=== PATIENT | male | born 1960 | race African-American/Black ===

== ENCOUNTER 2017-06-28 15:42 | Emergency (ER) | payer OTHER ==
[2017-06-28 15:54] VITALS: BP 117/82; PULSE 70; TEMP 98.6; BMI 26.7
--- NOTE | 2017-06-28 16:08 | PDOC ---
History of Present Illness - General History Source: Patient Exam Limitations: No Limitations - History of Present Illness Initial Comments: 06/28/17 16:37 The patient is a 56 year old male with past medical history of double knee replacement and chronic lower back pain secondary to injury in 2011 who presents to the ED with complaints of worsening lower back pain since yesterday. The patients states the patient always has pain, but over the past day it has been significantly worse. He denies any recent injury to the area or any recent falls. He denies any associated numbness or tingling, denies any saddle anesthesia. He denies taking anything for pain. She reports the patient has worked every day for the past three weeks. He works at [employer] in the [place], performing heavy lifting often, and states he wears a back support. He denies any recent illness, fevers, or chills. <Kelley Saunders - Last Filed: 06/28/17 17:03> <Zak Nicole - Last Filed: 06/28/17 17:13> - General Chief Complaint: Back Pain Stated Complaint: BACK PAIN Time Seen by Provider: 06/28/17 15:58 Past History <Kelley Saunders - Last Filed: 06/28/17 17:03> - Past Medical History COPD: No GI Disorders: Yes (colitis) Hypercholesterolemia: Yes Other medical history: BACK PAIN - Surgical History Orthopedic Surgery: Yes (left arthroscopy; toe sx) - Immunization History Immunization Up to Date: Yes - Suicide/Smoking/Psychosocial Hx Smoking Status: No Smoking History: Former smoker Have you smoked in the past 12 months: No Number of Cigarettes Smoked Daily: 0 If you are a former smoker, when did you quit?: 1993 Information on smoking cessation initiated: No Hx Alcohol Use: Yes (OCCASIONAL) Drug/Substance Use Hx: No Substance Use Type: None Hx Substance Use Treatment: No <Zak Nicole - Last Filed: 06/28/17 17:13> - Past Medical History Allergies/Adverse Reactions: Allergies Allergy/AdvReac Type Severity Reaction Status Date / Time shellfish derived Allergy Unknown Verified 06/28/17 15:49 SALMON Allergy Hives Uncoded 06/28/17 15:49 Home Medications: Ambulatory Orders Atorvastatin Ca [Lipitor] 40 mg PO HS 05/05/14 Aspirin [Aspirin EC] 81 mg PO HS 06/28/17 Ketorolac Tromethamine [Toradol] 10 mg PO Q6H #20 tablet 06/28/17 hydrOXYzine PAMOATE [Vistaril -] 25 - 50 mg PO TID #20 capsule 06/28/17 Trauma Specific PMHX - Complaint Specific PMHX Arthritis: No <Zak Nicole - Last Filed: 06/28/17 17:13> Review of Systems - Review of Systems Able to Perform ROS?: Yes Comments:: 06/28/17 16:37 CONSTITUTIONAL: Absent: fever, no chills, no fatigue EYES: Absent: visual changes ENT: Absent: ear pain, no sore throat CARDIOVASCULAR: Absent: chest pain, no palpitations RESPIRATORY: Absent: cough, no SOB GI: Absent: abdominal pain, no nausea, no vomiting, no constipation, no diarrhea GENITOURINARY: Absent: dysuria, no frequency, no hematuria MUSKULOSKELETAL: Present: lower back pain Absent: no arthralgia, no myalgia SKIN: Absent: rash NEURO: Absent: headache All Other Systems: Reviewed and Negative <Kelley Saunders - Last Filed: 06/28/17 17:03> *Physical Exam - Vital Signs Last Vital Signs Temp Pulse Resp BP Pulse Ox 98.6 F 70 16 117/82 98 06/28/17 15:43 06/28/17 15:43 06/28/17 15:43 06/28/17 15:43 06/28/17 15:43 - Physical Exam Comments: 06/28/17 17:03 GENERAL: Well-appearing, well-nourished. No apparent distress. HEENT: Normocephalic, atraumatic. PERRL, EOM intact. CARDIOVASCULAR: Normal S1, S2. Regular rate and rhythm. PULMONARY: Clear to auscultation bilaterally. ABDOMEN: Soft, non-distended, non-tender. EXTREMITIES: Normal ROM in all four extremities. No gross deformities.Distal pulses full and symmetric BACK LS spine has complete loss of lumbar lordosis with severe paravertebral spasm. No point tenderness over vertebral bodies. Negative straight leg raise test. SKIN: Warm, dry. No rash NEUROLOGICAL: No focal neurological deficits. No distal sensory or motor deficits. Ambulation adequate, but uncomfortable <Kelley Saunders - Last Filed: 06/28/17 17:03> - Vital Signs Last Vital Signs Temp Pulse Resp BP Pulse Ox 98.6 F 70 16 117/82 98 06/28/17 15:43 06/28/17 15:43 06/28/17 15:43 06/28/17 15:43 06/28/17 15:43 <Zak Nicole - Last Filed: 06/28/17 17:13> ED Treatment Course - Medications Given in the ED: ED Medications Discontinued Medications Generic Name Dose Route Start Last Admin Trade Name Matt PRN Reason Stop Dose Admin Hydroxyzine Pamoate 50 mg 06/28/17 16:21 06/28/17 16:28 Vistaril - PO 06/28/17 16:22 50 mg ONCE ONE Administration Ketorolac Tromethamine 60 mg 06/28/17 16:20 06/28/17 16:30 Toradol Injection - IM 06/28/17 16:21 60 mg ONCE ONE Administration <Kelley Saunders - Last Filed: 06/28/17 17:03> Medical Decision Making - Medical Decision Making 06/28/17 17:12 Patient is feeling much better. His pain is much improved. Spasm has decreased. He is adequately ambulatory. To continue medication at home and follow-up as directed <Zak Nicole - Last Filed: 06/28/17 17:13> *DC/Admit/Observation/Transfer - Attestations Scribe Attestion: 06/28/17 16:38 Documentation prepared by Kelley Saunders, acting as medical director occupational health for Zak Salinas MD. <Kelley Saunders - Last Filed: 06/28/17 17:03> - Discharge Dispostion Decision to Admit order: No <Zak Nicole - Last Filed: 06/28/17 17:13> Diagnosis at time of Disposition: Low back strain Qualifiers: Encounter type: initial encounter Qualified Code(s): S39.012A - Strain of muscle, fascia and tendon of lower back, initial encounter - Discharge Dispostion Disposition: HOME Condition at time of disposition: Improved - Prescriptions Prescriptions: hydrOXYzine PAMOATE [Vistaril -] 25 - 50 mg PO TID #20 capsule Ketorolac Tromethamine [Toradol] 10 mg PO Q6H #20 tablet - Referrals Referrals: Juan Daniel Tomlin MD [Primary Care Provider] - 24 hours Rick Purdy MD [Staff Physician] - 3 days - Patient Instructions Printed Discharge Instructions: DI for Low Back Pain Additional Instructions: See back specialist for further evaluation and treatment Consider resuming injections and physical therapy. - Post Discharge Activity Forms/Work/School Notes: Back to Work
[2017-06-28] MEDS ORDERED: KETOROLAC TROMETHAMINE 60 MG/2 ML VIAL IM ONE (16:20)
[2017-06-28] MEDS ORDERED: hydrOXYzine PAMOATE 50 MG CAPSULE (FP) PO ONE (16:21)
[2017-06-28] MEDS ORDERED: hydrOXYzine PAMOATE 25 MG CAPSULE (FP) PO ONE (16:26)
[2017-06-28] MEDS ORDERED: KETOROLAC TROMETHAMINE 60 MG/2 ML VIAL ONE (16:26)
== END 2017-06-28 17:17 | disposition home or self-care (01) ==
LOC: FER 15:42 → SUPCPDRO 15:42 → FER 17:17
PROC: 3E0233Z Introduction of Anti-inflammatory into Muscle, Percutaneous Approach (ICD-10-PCS; principal; 2017-06-28)
DX: S39.012A Strain of muscle, fascia and tendon of lower back, initial encounter (principal); Z87.891 Personal history of nicotine dependence; E78.00 Pure hypercholesterolemia, unspecified
CPT/HCPCS: 99282-25

== ENCOUNTER 2017-07-31 21:51 | Emergency (ER) | payer OTHER ==
--- NOTE | 2017-07-31 22:59 | PDOC ---
History of Present Illness - General Chief Complaint: Pain Stated Complaint: LT LEG PAIN History Source: Patient Exam Limitations: Language Barrier - History of Present Illness Initial Comments: 08/01/17 06:53 L LE pain, slightly imporved undergoing physical therapy for LBP Timing/Duration: 1 week Severity: moderate Modifying Factors: improves with: immobilization Associated Symptoms: reports: rash. denies: fever/chills Past History - Past Medical History Allergies/Adverse Reactions: Allergies Allergy/AdvReac Type Severity Reaction Status Date / Time shellfish derived Allergy Unknown Verified 06/28/17 15:49 SALMON Allergy Hives Uncoded 06/28/17 15:49 Home Medications: Ambulatory Orders Atorvastatin Ca [Lipitor] 40 mg PO HS 05/05/14 Aspirin [Aspirin EC] 81 mg PO HS 06/28/17 Ketorolac Tromethamine [Toradol] 10 mg PO Q6H #20 tablet 06/28/17 hydrOXYzine PAMOATE [Vistaril -] 25 - 50 mg PO TID #20 capsule 06/28/17 COPD: No GI Disorders: Yes (colitis) Hypercholesterolemia: Yes - Surgical History Orthopedic Surgery: Yes (left arthroscopy; toe sx) - Immunization History Immunization Up to Date: Yes - Suicide/Smoking/Psychosocial Hx Smoking Status: No Smoking History: Former smoker Have you smoked in the past 12 months: No Number of Cigarettes Smoked Daily: 0 If you are a former smoker, when did you quit?: 1993 Hx Alcohol Use: Yes (OCCASIONAL) Drug/Substance Use Hx: No Substance Use Type: None Hx Substance Use Treatment: No Review of Systems - Review of Systems All Other Systems: Reviewed and Negative *Physical Exam - Physical Exam General Appearance: Yes: Nourished, Appropriately Dressed HEENT: positive: Normal Voice Respiratory/Chest: positive: Lungs Clear Lymphatic: negative: Adenopathy Musculoskeletal: positive: Other (hamstring tenderness L leg) Integumentary: positive: Normal Color. negative: Warm Neurologic: positive: Fully Oriented Medical Decision Making - Medical Decision Making 08/01/17 06:54 hamstring strain nsaids *DC/Admit/Observation/Transfer Diagnosis at time of Disposition: Hamstring muscle strain Qualifiers: Encounter type: initial encounter Laterality: left Qualified Code(s): S76.312A - Strain of muscle, fascia and tendon of the posterior muscle group at thigh level, left thigh, initial encounter - Discharge Dispostion Disposition: HOME Condition at time of disposition: Stable - Referrals Referrals: Juan Daniel Tomlin MD [Primary Care Provider] - Call tomorrow - Patient Instructions Additional Instructions: Ibuprofen 600mg every 6 hours, as needed for pain. Return to ER if the area becomes red or if he develops fever - Post Discharge Activity
[2017-07-31 23:20] VITALS: BP 118/79; PULSE 66; TEMP 99; BMI 26.7
== END 2017-07-31 23:00 | disposition home or self-care (01) ==
LOC: FER 21:51
DX: S76.312A Strain of muscle, fascia and tendon of the posterior muscle group at thigh level, left thigh, initial encounter (principal); X58.XXXA Exposure to other specified factors, initial encounter; Y93.89 Activity, other specified; Y92.9 Unspecified place or not applicable; Z87.891 Personal history of nicotine dependence
CPT/HCPCS: 74240-TC-FY; 99282-25

== ENCOUNTER 2018-04-27 08:00 | Inpatient (IN) | payer OTHER ==
[2018-05-26 16:27] VITALS: BMI 28.7
[2018-06-03] MEDS ORDERED: GENTAMICIN SO4 80 MG/2 ML VIAL ONE (08:06)
[2018-06-03] MEDS ORDERED: BUPIVACAINE LIPOSOME/PF (EXPAREL) 266 MG/20 ML VIAL ONE (08:06)
[2018-06-03] MEDS ORDERED: LIDOCAINE 1%-EPI 1:100,000 30 ML MDV IJ ONE (08:07)
[2018-06-03] MEDS ORDERED: VANCOMYCIN 1,000 MG VIAL (RESTRICTED TO ID ONLY) ONE ×2 (08:07→09:32)
[2018-06-03] MEDS ORDERED: THROMBIN (BOVINE) 20,000 UNIT VIAL TP ONE (08:07)
[2018-06-03] MEDS ORDERED: BUPIVACAINE HCL/PF 0.5% (5MG/ML) 10 ML VIAL ONE (08:08)
[2018-06-03] MEDS ORDERED: SUCCINYLCHOLINE CHLORIDE 200 MG/10 ML VIAL ONE (08:13)
[2018-06-03] MEDS ORDERED: MIDAZOLAM HCL 2 MG/2 ML SINGLE DOSE VIAL ONE (08:13)
[2018-06-03] MEDS ORDERED: PROPOFOL 20 ML ONE ×7 (08:13→12:17)
[2018-06-03] MEDS ORDERED: ROCURONIUM BROMIDE 50 MG/5 ML VIAL ONE ×2 (08:13→10:49)
[2018-06-03] MEDS ORDERED: MORPHINE 5 MG/10 ML AMP - FOR COMPOUNDING USE ONLY ONE (08:26)
[2018-06-03] MEDS ORDERED: ONDANSETRON 4 MG/2 ML VIAL ONE ×2 (09:21→11:16)
[2018-06-03] MEDS ORDERED: DEXAMETHASONE SOD PHOSPHATE 4 MG/1 ML VIAL ONE ×2 (09:21→11:16)
[2018-06-03] MEDS ORDERED: ceFAZolin SODIUM 1 GM VIAL IVPB ONE (09:30)
[2018-06-03] MEDS ORDERED: ceFAZolin SODIUM 1 GM VIAL ONE (09:32)
[2018-06-03] MEDS ORDERED: VANCOMYCIN 1,000 MG VIAL (RESTRICTED TO ID ONLY) IVPB ONE ×2 (09:45→10:33)
[2018-06-03] MEDS ORDERED: GENTAMICIN 80MG PREMIX BAG IVPB ONE (10:00)
[2018-06-03] MEDS ORDERED: BACITRACIN 50,000 UNITS VIAL TP ONE ×2 (10:00→10:33)
[2018-06-03] MEDS ORDERED: GELATIN SPONGE,ABSORBABLE 1 GM PACKET TP ONE (10:00)
[2018-06-03] MEDS ORDERED: HYDROGEN PEROXIDE 473 ML PO ONE (10:00)
[2018-06-03] MEDS ORDERED: ONDANSETRON 4 MG/2 ML VIAL IVPUSH PRN ×3 (10:25→13:18)
[2018-06-03] MEDS ORDERED: DOCUSATE SODIUM 100 MG CAPSULE (FP) PO PRN (10:31)
[2018-06-03] MEDS ORDERED: oxyCODONE HCL 5 MG TABLET PO PRN (10:31)
[2018-06-03] MEDS ORDERED: GLYCOPYRROLATE 0.2 MG/1 ML VIAL ONE (11:16)
[2018-06-03] MEDS ORDERED: NEOSTIGMINE METHYLSULFATE 0.5 MG/1 ML - 10 ML MDV ONE (11:17)
[2018-06-03] MEDS ORDERED: diphenhydrAMINE HCL 25 MG CAPSULE (FP) PO PRN (13:18)
[2018-06-03] MEDS ORDERED: LACTATED RINGERS SOLUTION 1,000 ML/1,000 ML INFUS.BAG IV SCH (13:30)
--- NOTE | 2018-06-03 14:12 | OP ---
Operative Note - Note: Operative Date: 06/03/18 Pre-Operative Diagnosis: lumbar instability Operation: L3-L5 laminectomy transpedicular approach for interbody cage and arthrodesis, L3-L5 posterior fusion Post-Operative Diagnosis: Same as Pre-op Surgeon: Jakob Gan [place] Repairer: Tabby Montalvo Anesthesiologist/FRONT OF HOUSE MANAGER: Joleen Mendoza Anesthesia: General, Epidural (duramorph), Local Estimated Blood Loss (mls): 350 Drains & Tubes with Location: denise drain right paravetebral area Drains, Volume Out (mls): 200 (foster) Fluid Volume Replaced (mls): 1,300 Operative Report Dictated: Yes
--- NOTE | 2018-06-03 15:00 | PN ---
Progress Note (short form) - Note Progress Note: internal medicine patient is status post L3-L5 laminectomy transpedicular approach for interbody cage and arthrodesis, L3-L5 posterior fusion examination the patient in recovery room, drowsy from anesthesia spoke with the service girl[employer] monitor normal PMH-- hyperlipidemia, lumbar radiculopathy Vital Signs - 24 hr 06/03/18 06/03/18 06/03/18 07:17 07:22 12:43 Temperature 98.1 F 98.7 F Pulse Rate 70 100 H Respiratory 18 16 Rate Blood Pressure 118/64 146/78 O2 Sat by Pulse 98 98 Oximetry (%) 06/03/18 06/03/18 06/03/18 12:55 13:10 13:25 Temperature Pulse Rate 77 80 75 Respiratory 14 15 18 Rate Blood Pressure 132/68 133/75 129/79 O2 Sat by Pulse 98 98 98 Oximetry (%) 06/03/18 06/03/18 06/03/18 13:40 13:55 14:10 Temperature Pulse Rate 84 80 80 Respiratory 18 18 18 Rate Blood Pressure 131/78 131/73 131/73 O2 Sat by Pulse 97 97 97 Oximetry (%) 06/03/18 06/03/18 14:25 14:40 Temperature Pulse Rate 76 81 Respiratory 14 18 Rate Blood Pressure 126/72 123/65 O2 Sat by Pulse 97 98 Oximetry (%) Current Medications Generic Name Dose Route Start Last Admin Trade Name Freq PRN Reason Stop Dose Admin Acetaminophen 650 mg 06/03/18 10:30 Tylenol - PO 06/06/18 10:29 Q6H [facility] Atorvastatin Calcium 40 mg 06/03/18 22:00 Lipitor - PO HS [facility] Diphenhydramine HCl 25 mg 06/03/18 13:18 Benadryl - PO Q6H PRN FOR ITCHING Docusate Sodium 100 mg 06/03/18 10:31 Colace - PO BID PRN CONSTIPATION Docusate Sodium 100 mg 06/03/18 14:00 Colace - PO TID [facility] Fentanyl 50 mcg 06/03/18 10:25 Sublimaze Injection - IVPUSH [id number] PRN PAIN-PACU ORDER X 4 DOSES ONLY Ferrous Sulfate 325 mg 06/04/18 10:00 Feosol - PO DAILY [facility] Folic Acid 1 mg 06/04/18 10:00 Folic Acid - PO DAILY [facility] Heparin Sodium (Porcine) 5,000 unit 06/03/18 22:00 Heparin - SQ TID [facility] Lactated Ringer's 1,000 mls @ 125 mls/hr 06/03/18 10:30 Lactated Ringers Solution IV ASDIR [facility] Cefazolin Sodium 1 gm in 50 mls @ 100 mls/hr 06/03/18 17:00 Ancef 1 Gm Premixed Ivpb - IVPB Q8H-IV [facility] Ondansetron HCl 4 mg 06/03/18 10:25 Zofran Injection IVPUSH Q6H PRN NAUSEA AND/OR VOMITING Ondansetron HCl 4 mg 06/03/18 10:25 Zofran Injection IVPUSH Q4H PRN NAUSEA Oxycodone HCl 5 mg 06/04/18 10:27 Roxicodone - PO Q3H PRN PAIN LEVEL 1 - 3 Oxycodone HCl 10 mg 06/04/18 10:27 Roxicodone - PO Q3H PRN PAIN LEVEL 4 - 6 Oxycodone HCl 10 mg 06/04/18 10:00 Oxycontin - PO 06/06/18 10:27 BID [facility] Oxycodone HCl 15 mg 06/03/18 10:31 Roxicodone - PO Q4H PRN PAIN LEVEL 7 - 10 Laboratory Results - last 24 hr 06/03/18 06:55 Blood Type A POSITIVE Antibody Screen Negative Crossmatch See Detail S1 S2 RRR No murmurs Lungs clear Abdomen soft, nontender, nondistended, bowel sounds present No edema sedated A/P Lumbar radiculopathy- status post laminectomy and spinal fusion -- Pain meds as prescribed -- Physical therapy to be started as per neurosurgery -- Incentive spirometry -- IV fluids -- Tylenol as needed -- postop antibiotics Hyperlipidemia Continue with Lipitor DVT prophylaxis -- heparin subcutaneous Problem List - Problems (1) Lumbar radiculopathy Code(s): M54.16 - RADICULOPATHY, LUMBAR REGION (2) Hyperlipidemia Code(s): E78.5 - HYPERLIPIDEMIA, UNSPECIFIED
[2018-06-03] MEDS: CEFAZOLIN 1 GM/D5W 1 GM/50 ML BAG IVPB SCH (17:27)
[2018-06-03] MEDS: ACETAMINOPHEN 325 MG TABLET (FP) PO SCH ×2 (17:30→21:51)
[2018-06-03] MEDS: LACTATED RINGERS SOLUTION 1,000 ML IV SCH ×2 (17:30→21:50)
[2018-06-03] MEDS: HEPARIN NA (PORCINE) 5,000 UNITS/ML 1ML VIAL SQ SCH (21:49)
[2018-06-03] MEDS: DOCUSATE SODIUM 100 MG CAPSULE (FP) PO SCH (21:50)
[2018-06-03] MEDS: ATORVASTATIN CA 40 MG TABLET (FP) PO SCH (21:50)
[2018-06-04] MEDS: CEFAZOLIN 1 GM/D5W 1 GM/50 ML BAG IVPB SCH ×3 (01:45→18:12)
[2018-06-04] MEDS: DOCUSATE SODIUM 100 MG CAPSULE (FP) PO SCH ×3 (06:12→22:15)
[2018-06-04] MEDS: ACETAMINOPHEN 325 MG TABLET (FP) PO SCH ×5 (06:12→22:14)
[2018-06-04] MEDS: HEPARIN NA (PORCINE) 5,000 UNITS/ML 1ML VIAL SQ SCH ×3 (06:13→22:15)
[2018-06-04 06:55] LABS: BASO % 0.1 % (0-2.0); HEMATOCRIT 34.9 % (35.4-49); HEMOGLOBIN 12.3 GM/dL (11.7-16.9); LYMPH % 13.5 % (8-40); MCH 33.8 pg (25.7-33.7); MCHC 35.2 g/dl (32.0-35.9); MEAN CELL VOLUME 95.9 fl (80-96); MEAN PLT VOLUME 8.3 fl (7.5-11.1); MONO % 7.3 % (3.8-10.2); NEUT % 79.1 % (42.8-82.8); PLATELET COUNT 174 K/MM3 (134-434); RBC 3.64 M/mm3 (4.00-5.60); RDW 12.4 % (11.9-15.9); WHITE BLOOD COUNT 6.6 K/mm3 (4.0-10.0)
[2018-06-04 07:13] LABS: ALBUMIN 3.1 g/dl (3.4-5.0); ALK PHOS 74 U/L (45-117); ANION GAP 7 MMOL/L (8-16); BILIRUBIN,TOTAL 0.5 mg/dL (0.2-1); BLOOD UREA NITROGEN 13 mg/dL (7-18); CHLORIDE 103 mmol/L (98-107); CO2 26 mmol/L (21-32); GLUCOSE,RANDOM 173 mg/dL (74-106); POTASSIUM 3.7 mmol/L (3.5-5.1); SGOT/AST 23 U/L (15-37); SGPT/ALT 35 U/L (13-61); SODIUM 137 mmol/L (136-145); TOT PROT 5.7 g/dl (6.4-8.2)
--- NOTE | 2018-06-04 08:13 | PN ---
Progress Note (short form) - Note Progress Note: 57yo M s/p L3-5 PLIF 06/03 POD 1, pt seen and examined at bedside. Pt denies any pain in his back. Pt has not ambulated with PT yet. Pt denies any fever, chills, n/v. Pt denies weakness in his legs. Last Vital Signs Temp Pulse Resp BP Pulse Ox 98.3 F 73 20 101/63 98 06/04/18 06:00 06/04/18 06:00 06/04/18 06:00 06/04/18 06:00 06/03/18 20:18 CBC, BMP 06/04/18 05:30 06/04/18 05:30 PE: Gen: A&O x 3 Resp: breathing comfortably Abd: soft, nontender, nodistended Back: incision clean no erythema or discharge, drain in place with serosanguinous drainage. Ext: no edema Problem List - Problems (1) Lumbar radiculopathy Assessment/Plan: Plan -OOB ambulate with PT -can discontinue Tele as duramorph should be out of system -DVT ppx -Pain control Code(s): M54.16 - RADICULOPATHY, LUMBAR REGION
[2018-06-04] MEDS: FOLIC ACID 1 MG TABLET (FP) PO SCH (09:00)
[2018-06-04] MEDS: FERROUS SO4 325 MG TABLET (FP) PO SCH (09:00)
[2018-06-04] MEDS: oxyCODONE HCL 10 MG SUSTAINED ACTING TABLET PO SCH ×2 (10:00→22:15)
[2018-06-04] MEDS ORDERED: oxyCODONE HCL 5 MG TABLET PO PRN ×2 (10:27)
--- NOTE | 2018-06-04 10:30 | PN ---
Progress Note (short form) - Note Progress Note: pt seen/ examined pod # 1 comfortable pain ok Vital Signs Temp 98.5 F 06/04/18 10:00 Pulse 68 06/04/18 10:00 Resp 18 06/04/18 10:00 BP 116/64 06/04/18 10:00 Pulse Ox 98 06/04/18 09:00 Intake & Output 06/03/18 06/03/18 06/04/18 11:59 23:59 11:59 Intake Total 1300 780 650 Output Total 300 2400 1250 Balance 1000 -1620 -600 Weight 230 lb Intake: IV 1300 300 600 Lactated Ringers Solution 600 1,000 ml @ 125 mls/hr IV ASDIR [facility] Rx#: [id number] IVPB 50 Oral 480 Output: Drainage 250 50 Back 150 50 Urine 300 1800 1200 Foster 1000 1200 Estimated Blood Loss 350 Other: Voiding Method Indwelling Catheter Indwelling Catheter Height 6 ft 3 in Body Mass Index (BMI) 28.7 Weight Measurement Method Stated by Patient Active Medications Acetaminophen (Tylenol -) 650 mg PO Q6H [facility] Stop: 06/06/18 10:29 Last Admin: 06/04/18 09:47 Dose: Not Given Atorvastatin Calcium (Lipitor -) 40 mg PO HS [facility] Last Admin: 06/03/18 21:50 Dose: 40 mg Diphenhydramine HCl (Benadryl -) 25 mg PO Q6H PRN PRN Reason: FOR ITCHING Docusate Sodium (Colace -) 100 mg PO BID PRN PRN Reason: CONSTIPATION Docusate Sodium (Colace -) 100 mg PO TID [facility] Last Admin: 06/04/18 06:12 Dose: 100 mg Fentanyl (Sublimaze Injection -) 50 mcg IVPUSH [id number] PRN PRN Reason: PAIN-PACU ORDER X 4 DOSES ONLY Ferrous Sulfate (Feosol -) 325 mg PO DAILY [facility] Last Admin: 06/04/18 09:00 Dose: 325 mg Folic Acid (Folic Acid -) 1 mg PO DAILY [facility] Last Admin: 06/04/18 09:00 Dose: 1 mg Heparin Sodium (Porcine) (Heparin -) 5,000 unit SQ TID [facility] Last Admin: 06/04/18 06:13 Dose: 5,000 unit Cefazolin Sodium (Ancef 1 Gm Premixed Ivpb -) 1 gm in 50 mls @ 100 mls/hr IVPB Q8H-IV [facility] Last Admin: 06/04/18 08:59 Dose: 100 mls/hr Ondansetron HCl (Zofran Injection) 4 mg IVPUSH Q6H PRN PRN Reason: NAUSEA AND/OR VOMITING Ondansetron HCl (Zofran Injection) 4 mg IVPUSH Q4H PRN PRN Reason: NAUSEA Oxycodone HCl (Roxicodone -) 5 mg PO Q3H PRN PRN Reason: PAIN LEVEL 1 - 3 Oxycodone HCl (Roxicodone -) 10 mg PO Q3H PRN PRN Reason: PAIN LEVEL 4 - 6 Oxycodone HCl (Oxycontin -) 10 mg PO BID [facility] Stop: 06/06/18 10:27 Oxycodone HCl (Roxicodone -) 15 mg PO Q4H PRN PRN Reason: PAIN LEVEL 7 - 10 CBC, BMP 06/04/18 05:30 06/04/18 05:30 Physical Exam. awake/ comfortable S1 S2 RRR No murmurs Lungs clear Abdomen soft, non tender, non distended, bowel sounds present No edema A/P pod # 1 stable P Therapy d/c fluids d/c foster -- if ok with surgery discussed with nursing staff d/c tele Incentive spirometry Problem List - Problems (1) Lumbar radiculopathy Code(s): M54.16 - RADICULOPATHY, LUMBAR REGION
--- NOTE | 2018-06-04 14:41 | PN ---
Progress Note (short form) - Note Progress Note: Post op day#1.S/P L3-L5 Posterior deompression with fusion under GA with intrathecal duramorph and TLIP block uneventful.Patient stable and has minimal pain.No any anesthesia related problem.Patient Dc from the anesthesia care.
[2018-06-04] MEDS ORDERED: SODIUM CHLORIDE 500 ML IV STA (21:59)
[2018-06-04] MEDS: ATORVASTATIN CA 40 MG TABLET (FP) PO SCH (22:14)
[2018-06-05] MEDS: CEFAZOLIN 1 GM/D5W 1 GM/50 ML BAG IVPB SCH ×2 (01:37→11:11)
[2018-06-05] MEDS: ACETAMINOPHEN 325 MG TABLET (FP) PO SCH ×2 (05:58→11:10)
[2018-06-05] MEDS: DOCUSATE SODIUM 100 MG CAPSULE (FP) PO SCH (05:59)
[2018-06-05] MEDS: HEPARIN NA (PORCINE) 5,000 UNITS/ML 1ML VIAL SQ SCH (05:59)
[2018-06-05] MEDS: oxyCODONE HCL 10 MG SUSTAINED ACTING TABLET PO SCH (11:12)
[2018-06-05] MEDS: FOLIC ACID 1 MG TABLET (FP) PO SCH (11:12)
[2018-06-05] MEDS: FERROUS SO4 325 MG TABLET (FP) PO SCH (11:12)
--- NOTE | 2018-06-05 12:53 | PN ---
Progress Note (short form) - Note Progress Note: internal medicine POD#2 patient is status post L3-L5 laminectomy transpedicular approach for interbody cage and arthrodesis, L3-L5 posterior fusion no complaints at bedside pt is ambulating H-- hyperlipidemia, lumbar radiculopathy Vital Signs - 24 hr 06/04/18 06/04/18 06/04/18 14:15 18:00 20:15 Temperature 98.2 F 98.8 F 99.1 F Pulse Rate 71 82 78 Respiratory 16 18 18 Rate Blood Pressure 92/58 L 108/53 L 117/58 L O2 Sat by Pulse Oximetry (%) 06/04/18 06/04/18 06/05/18 21:00 22:00 02:00 Temperature 98.7 F 99.2 F Pulse Rate 80 81 Respiratory 18 18 Rate Blood Pressure 86/52 L 102/48 L O2 Sat by Pulse 94 L Oximetry (%) 06/05/18 06:00 Temperature 99.1 F Pulse Rate 84 Respiratory 18 Rate Blood Pressure 121/68 O2 Sat by Pulse Oximetry (%) Current Medications Generic Name Dose Route Start Last Admin Trade Name Freq PRN Reason Stop Dose Admin Acetaminophen 650 mg 06/03/18 10:30 06/05/18 11:10 Tylenol - PO 06/06/18 10:29 650 mg Q6H [facility] Administration Atorvastatin Calcium 40 mg 06/03/18 22:00 06/04/18 22:14 Lipitor - PO 40 mg HS [facility] Administration Diphenhydramine HCl 25 mg 06/03/18 13:18 Benadryl - PO Q6H PRN FOR ITCHING Docusate Sodium 100 mg 06/03/18 10:31 Colace - PO BID PRN CONSTIPATION Docusate Sodium 100 mg 06/03/18 14:00 06/05/18 05:59 Colace - PO 100 mg TID [facility] Administration Fentanyl 50 mcg 06/03/18 10:25 Sublimaze Injection - IVPUSH [id number] PRN PAIN-PACU ORDER X 4 DOSES ONLY Ferrous Sulfate 325 mg 06/04/18 10:00 06/05/18 11:12 Feosol - PO 325 mg DAILY [facility] Administration Folic Acid 1 mg 06/04/18 10:00 06/05/18 11:12 Folic Acid - PO 1 mg DAILY [facility] Administration Heparin Sodium (Porcine) 5,000 unit 06/03/18 22:00 06/05/18 05:59 Heparin - SQ 5,000 unit TID [facility] Administration Cefazolin Sodium 1 gm in 50 mls @ 100 mls/hr 06/03/18 17:00 06/05/18 11:11 Ancef 1 Gm Premixed Ivpb - IVPB Not Given Q8H-IV [facility] Ondansetron HCl 4 mg 06/03/18 10:25 Zofran Injection IVPUSH Q6H PRN NAUSEA AND/OR VOMITING Ondansetron HCl 4 mg 06/03/18 10:25 Zofran Injection IVPUSH Q4H PRN NAUSEA Oxycodone HCl 5 mg 06/04/18 10:27 Roxicodone - PO Q3H PRN PAIN LEVEL 1 - 3 Oxycodone HCl 10 mg 06/04/18 10:27 06/04/18 12:37 Roxicodone - PO 10 mg Q3H PRN Administration PAIN LEVEL 4 - 6 Oxycodone HCl 10 mg 06/04/18 10:00 06/05/18 11:12 Oxycontin - PO 06/06/18 10:[address] [facility] Oxycodone HCl 15 mg 06/03/18 10:31 Roxicodone - PO Q4H PRN PAIN LEVEL 7 - 10 S1 S2 RRR No murmurs Lungs clear Abdomen soft, nontender, nondistended, bowel sounds present No edema sedated A/P Lumbar radiculopathy- status post laminectomy and spinal fusion -- Pain meds as prescribed -- Physical therapy to be started as per neurosurgery -- Incentive spirometry -- dc per Neurosurgery -- Tylenol as needed -- postop antibiotics completed Hyperlipidemia Continue with Lipitor Problem List - Problems (1) Lumbar radiculopathy Code(s): M54.16 - RADICULOPATHY, LUMBAR REGION (2) Hyperlipidemia Code(s): E78.5 - HYPERLIPIDEMIA, UNSPECIFIED
--- NOTE | 2018-06-05 13:18 | DS ---
Physical Examination Vital Signs: Vital Signs Temperature 99.1 F 06/05/18 06:00 Pulse Rate 84 06/05/18 06:00 Respiratory Rate 18 06/05/18 06:00 Blood Pressure 121/68 06/05/18 06:00 O2 Sat by Pulse Oximetry (%) 94 L 06/04/18 21:00 Constitutional: Yes: No Distress Cardiovascular: Yes: Regular Rate and Rhythm Respiratory: Yes: CTA Bilaterally Gastrointestinal: Yes: Normal Bowel Sounds, Soft. No: Distention, Tenderness Edema: No Labs: CBC, BMP 06/04/18 05:30 06/04/18 05:30 Discharge Summary Reason For Visit: LUMABR INSTABILITY Current Active Problems Hyperlipidemia (Acute) Lumbar radiculopathy (Acute) Hospital Course: see previous progress note Condition: Good - Instructions Diet, Activity, Other Instructions: Post Operative Instructions Physical Activity Resume your normal everyday activity as tolerated. No heavy lifting or exercise until seen by your surgeon. You may walk unlimited amounts and climb stairs. You may resume driving the car when you feel safe and comfortable behind the wheel and you are no longer wearing your brace. Do not operate a vehicle while taking narcotic medication. Brace If you had back surgery, wear TLSO Brace whenever out of bed. May remove to sleep and shower. Wound Care Keep your incision clean, dry and covered at all times. Apply an occlusive dressing (Saran wrap or Tegaderm) when showering to avoid getting your incision wet. Do not submerge incision or apply ointments or creams. Diet There are no dietary restrictions. Eat healthy, high-fiber foods. Drink 6-8 glasses of liquid each day. This will assist in keeping your bowels regular. Pain Management You may take Tylenol (Acetaminophen) for mild pain. You have been prescribed a narcotic pain medication for moderate to severe pain. Take as directed. Do not take additional Tylenol if your narcotic pain prescription contains Tylenol ( Acetaminophen). Do not drive, drink alcohol or operate heavy machinery while taking narcotic pain medications. Do not take any NSAIDS (Ibuprofen, Motrin, Aleve, etc) for 3 months unless otherwise discussed with your surgeon. Call Dr Lucio for any of the following: Severe pain not relieved by medication Fever of 101 or higher Excessive bleeding or drainage on dressing Inability to urinate Any chest pain or shortness of breath, seek Emergency Care. ISTOP: [phone] Call the office to confirm a post-operative appointment for 2-3 weeks post-op Jakob Gan MD [facility] [place] [address] Disposition: HOME - Home Medications Comprehensive Discharge Medication List: Ambulatory Orders Atorvastatin Ca [Lipitor] 40 mg PO HS 05/05/14
[2018-06-05 16:12] VITALS: BP 116/70; PULSE 76; TEMP 98.5
== END 2018-06-05 13:58 | disposition home or self-care (01) | DRG 304 ==
LOC: JSAMEDAYSX 06-03 05:04 → J4W 06-03 15:38
PROVIDERS: ADMIT Internal Medicine; ATTEND Internal Medicine
PROC: 0SG1071 Fusion of 2 or more Lumbar Vertebral Joints with Autologous Tissue Substitute, Posterior Approach, Posterior Column, Open Approach (ICD-10-PCS; 2018-06-03)
PROC: 0SB20ZZ Excision of Lumbar Vertebral Disc, Open Approach (ICD-10-PCS; 2018-06-03)
PROC: B01BZZZ Fluoroscopy of Spinal Cord (ICD-10-PCS; 2018-06-03)
PROC: 0JX70ZZ Transfer Back Subcutaneous Tissue and Fascia, Open Approach (ICD-10-PCS; 2018-06-03)
PROC: 0SG10AJ Fusion of 2 or more Lumbar Vertebral Joints with Interbody Fusion Device, Posterior Approach, Anterior Column, Open Approach (ICD-10-PCS; principal; 2018-06-03 09:00)
DX: M51.16 Intervertebral disc disorders with radiculopathy, lumbar region (principal); M48.061 Spinal stenosis, lumbar region without neurogenic claudication; G96.19 Other disorders of meninges, not elsewhere classified; E78.5 Hyperlipidemia, unspecified; K21.9 Gastro-esophageal reflux disease without esophagitis; M51.26 Other intervertebral disc displacement, lumbar region; M51.27 Other intervertebral disc displacement, lumbosacral region
CPT/HCPCS: 36415; 72131-TC; 76000-TC-FY; 80048; 80053; 85025; 86850; 86900; 86901; 86922; 94760; 97116-GP; 97161-GP; J1644

== ENCOUNTER 2022-10-08 09:58 | Emergency (ER) | payer OTHER ==
[2022-10-08 10:04] VITALS: BP 101/72; RESP 18; TEMP 97.9; BMI 29.2
[2022-10-08] MEDS ORDERED: ACETAMINOPHEN 325 MG TABLET (FP) PO ONE (11:04)
[2022-10-08] MEDS ORDERED: ACETAMINOPHEN 325 MG TABLET (FP) ONE (11:24)
[2022-10-08] MEDS ORDERED: APIXABAN 5 MG TABLET PO ONE (12:44)
[2022-10-08 12:54] VITALS: PULSE 71
[2022-10-08] MEDS ORDERED: APIXABAN 5 MG TABLET ONE (12:54)
== END 2022-10-08 13:23 | disposition home or self-care (01) ==
LOC: JER 09:58
DX: M79.604 Pain in right leg (principal); R22.31 Localized swelling, mass and lump, right upper limb; I82.431 Acute embolism and thrombosis of right popliteal vein; M71.21 Synovial cyst of popliteal space [Baker], right knee
CPT/HCPCS: 93971-TC; 99284-25

== ENCOUNTER 2023-09-25 12:00 | Emergency (ER) | payer OTHER ==
[2023-09-25 12:06] VITALS: PULSE 81; RESP 18; TEMP 98.2; BMI 30.7
[2023-09-25 13:24] LABS: VENOUS BASE EXCESS -0.6 mmol/L (-2-2); VENOUS O2 SATURATION 63.1 % (70-80); VENOUS PH 7.377 (7.310-7.410)
[2023-09-25 13:31] LABS: BASO % 0.6 % (0-2.0); EOS % 3.6 % (0-4.5); HEMATOCRIT 41.3 % (35.4-49); HEMOGLOBIN 14.3 GM/dL (11.7-16.9); LYMPH % 49.1 % (8-40); MCH 33.2 pg (25.7-33.7); MCHC 34.8 g/dl (32.0-35.9); MEAN CELL VOLUME 95.4 fl (80-96); MEAN PLT VOLUME 7.9 fl (7.5-11.1); MONO % 9.1 % (3.8-10.2); NEUT % 37.6 % (42.8-82.8); PLATELET COUNT 211 10^3/uL (134-434); RBC 4.33 M/mm3 (4.00-5.60); RDW 13.2 % (11.9-15.9); WHITE BLOOD COUNT 4.1 K/mm3 (4.0-10.0)
[2023-09-25 13:40] LABS: ACTIVATED PTT 29.7 SECONDS (25.2-36.5); INR 0.99 (0.83-1.09); PROTHROMBIN TIME (PATIENT) 11.2 SEC (9.7-13.0)
[2023-09-25 13:54] LABS: POTASSIUM 4.1 mmol/L (3.5-5.1)
[2023-09-25 13:56] LABS: BLOOD UREA NITROGEN 17.7 mg/dL (7-18); CALCIUM 9.2 mg/dL (8.5-10.1)
[2023-09-25 13:57] LABS: ALBUMIN 3.9 g/dl (3.4-5.0)
[2023-09-25 14:01] LABS: TOT PROT 7.4 g/dl (6.4-8.2)
[2023-09-25 14:03] LABS: BILIRUBIN,TOTAL 0.6 mg/dL (0.2-1)
[2023-09-25 14:05] LABS: N-TERMINAL BNP 30.1 pg/ml (5-125)
[2023-09-25] MEDS ORDERED: APIXABAN 5 MG TABLET ONE (15:07)
[2023-09-25] MEDS: SODIUM CHLORIDE 1,000 ML IV STA (15:12)
[2023-09-25] MEDS: APIXABAN 5 MG TABLET PO ONE (15:12)
[2023-09-25 18:12] VITALS: BP 110/68
[2023-09-25] MEDS ORDERED: APIXABAN 5 MG TABLET PO SCH (22:00)
== END 2023-09-25 19:58 | disposition home or self-care (01) ==
LOC: JER 12:00
DX: I82.401 Acute embolism and thrombosis of unspecified deep veins of right lower extremity (principal); R06.02 Shortness of breath; R00.2 Palpitations; R07.2 Precordial pain
CPT/HCPCS: 36415; 71275-TC; 80053; 82803; 83880; 84484; 85025; 85610; 85730; 86850; 86900; 86901; 93005; 93010; 99285-25; Q9967